=== PATIENT | female | born 1985 | race Caucasian/White ===

== ENCOUNTER 2023-12-13 14:23 | Outpatient (CLI) | payer OTHER, SELFPAY ==
[2023-12-14 16:16] LABS: EBV Ab VCA, IgG >600.0 U/mL (0.0-17.9); EBV Ab VCA, IgM <36.0 U/mL (0.0-35.9); EBV Nuclear Antigen Ab, IgG 64.4 U/mL (0.0-17.9)
== END 2023-12-13 23:59 ==
LOC: LAB.DROPOF 14:23
PROVIDERS: PCP Nurse Practitioner Family; Visit Provider Nurse Practitioner Family
DX: R59.0 Localized enlarged lymph nodes (principal); J35.1 Hypertrophy of tonsils; F17.200 Nicotine dependence, unspecified, uncomplicated
CPT/HCPCS: 86664; 86665